=== PATIENT | female | born 1985 | race Caucasian/White ===

== ENCOUNTER 2021-10-30 16:22 | Emergency (ER) | payer OTHER | END 2021-10-30 16:54 | disposition left against medical advice (07) | LOC: FER 16:22 | DX: R06.02 Shortness of breath (principal); R05.9 Cough, unspecified; F17.210 Nicotine dependence, cigarettes, uncomplicated; Z88.8 Allergy status to other drugs, medicaments and biological substances; Z53.8 Procedure and treatment not carried out for other reasons | CPT/HCPCS: 71045 ==

== ENCOUNTER 2022-01-13 18:10 | Emergency (ER) | payer OTHER ==
[~2022-01-13] VITALS: Ht 154.9 cm; Wt 104.3 kg
[2022-01-13 19:04] LABS: BASOPHIL 0.6 % (0-2); EOSINOPHIL 4.1 % (0-5); HCT 42.6 % (37.0-47.0); HGB 13.8 g/dl (12.5-16.0); LYMPHOCYTE 22.2 % (15-48); MCH 28.9 pg (25.0-31.0); MCHC 32.4 g/dL (32.0-36.0); MCV 89.1 fL (78.0-100.0); MPV 10.4 fL (6.0-9.5); NEUTROPHIL 65.8 % (41-80); NRBC 0; PLT 304 K/uL (150-400); RBC 4.78 M/uL (4.20-5.40); RDW 13.6 % (11.5-14.0)
[2022-01-13 19:23] LABS: ALBUMIN 3.1 g/dL (3.4-5.0); BILIRUBIN - TOTAL 0.9 mg/dL (0.2-1.0); BUN/CREAT RATIO (CALC) 11.1 RATIO; CREATININE 0.81 mg/dL (0.51-0.95); POTASSIUM 3.9 mmol/L (3.5-5.1); TOTAL PROTEIN 7.1 g/dL (6.4-8.2)
[2022-01-13 19:38] LABS: CORONAVIRUS 2019 SARS-COV-2 NEGATIVE (NEGATIVE); INFLUENZA A NAA NEGATIVE (NEGATIVE)
[2022-01-13 20:12] LABS: LACTIC ACID 1.1 mmol/L (0.4-1.9)
[2022-01-13 20:20] LABS: BILIRUBIN NEGATIVE (NEGATIVE); BLOOD NEGATIVE Ery/uL (NEGATIVE); CLARITY CLEAR (CLEAR); COLOR COLORLESS (YELLOW); GLUCOSE (U) NORMAL (NORMAL); LEUKOCYTES NEGATIVE Leu/uL (NEGATIVE); NITRITE NEGATIVE (NEGATIVE); PROTEIN NEGATIVE (NEGATIVE); UROBILINOGEN 0.2 mg/dL (0.2-1.0); pH 7.5 (5.0-9.0)
[2022-01-13 20:44] LABS: AMPHETAMINES NEGATIVE (NEGATIVE); BARBITURATES NEGATIVE (NEGATIVE); ECSTASY (MDMA) NEGATIVE (NEGATIVE); MARIJUANA (THC) NEGATIVE (NEGATIVE); METHADONE NEGATIVE (NEGATIVE); OPIATES NEGATIVE (NEGATIVE); OXYCODONE NEGATIVE (NEGATIVE)
== END 2022-01-13 22:35 | disposition other institution (70) ==
LOC: FER 18:10
PROVIDERS: Emergency Medicine
DX: I11.0 Hypertensive heart disease with heart failure (principal); I50.9 Heart failure, unspecified; I21.4 Non-ST elevation (NSTEMI) myocardial infarction; Z88.8 Allergy status to other drugs, medicaments and biological substances; Z79.899 Other long term (current) drug therapy; Z20.822 Contact with and (suspected) exposure to COVID-19; Z28.310 Unvaccinated for COVID-19
CPT/HCPCS: 36415; 36600; 71045; 71275; 80053; 80305; 81003; 82803; 83605; 83880; 84145; 84484; 85025; 85379; 87040; 93005; 94640; J1644; J1940; Q9967; U0002

== ENCOUNTER 2022-05-08 20:12 | Emergency (ER) | payer OTHER ==
[2022-05-08 21:21] LABS: INFLUENZA A NAA NEGATIVE (NEGATIVE)
[2022-05-08 21:25] LABS: CORONAVIRUS 2019 SARS-COV-2 POSITIVE (NEGATIVE)
[2022-05-08] MEDS ORDERED: ONDANSETRON ODT4 MG PO (21:35)
[2022-05-08] MEDS ORDERED: PAXLOVID 300-11 EACH PO (21:35)
[2022-05-08 21:38] LABS: BASOPHIL 0.7 % (0-2); EOSINOPHIL 0.7 % (0-5); HCT 44.3 % (37.0-47.0); HGB 14.5 g/dl (12.5-16.0); LYMPHOCYTE 4.4 % (15-48); MCH 29.1 pg (25.0-31.0); MCHC 32.7 g/dL (32.0-36.0); MCV 88.8 fL (78.0-100.0); MONOCYTE 9.1 % (0-12); NEUTROPHIL 84.6 % (41-80); NRBC 0; PLT 235 K/uL (150-400); RBC 4.99 M/uL (4.20-5.40); RDW 13.6 % (11.5-14.0); WBC 7.6 K/uL (4.0-10.5)
[2022-05-08 22:57] LABS: CREATININE 0.82 mg/dL (0.51-0.95); GLOBULIN (CALCULATION) 3.7 g/dL; POTASSIUM 3.1 mmol/L (3.5-5.1); TOTAL PROTEIN 6.7 g/dL (6.4-8.2)
[2022-05-08 23:12] LABS: PROTHROMBIN TIME 12.9 SECONDS (11.9-13.9); PTT 30.9 SECONDS (24.9-34.6)
== END 2022-05-09 08:15 | disposition other institution (70) ==
LOC: FER 20:12
PROVIDERS: Emergency Medicine
DX: U07.1 COVID-19 (principal); R77.8 Other specified abnormalities of plasma proteins; J44.9 Chronic obstructive pulmonary disease, unspecified; I11.0 Hypertensive heart disease with heart failure; I50.9 Heart failure, unspecified; F17.200 Nicotine dependence, unspecified, uncomplicated; Z88.8 Allergy status to other drugs, medicaments and biological substances; Z79.899 Other long term (current) drug therapy; Z28.310 Unvaccinated for COVID-19
CPT/HCPCS: 36415; 70450; 71045; 71275; 80053; 84484; 85025; 85379; 85610; 85730; 93005; C9399; J0248; J1644; J1885; J2405; J7050; Q9967; U0002